=== PATIENT | female | born 1955 | race Caucasian/White ===

== ENCOUNTER 2022-11-22 15:34 | Emergency (ER) | payer MEDICAID ==
[~2022-11-22] VITALS: Ht 154.9 cm; Wt 66.2 kg
[2022-11-22 15:41] VITALS: BP 126/72
[2022-11-22] MEDS ORDERED: MECLIZINE 25 MG TAB PO ONE (15:45)
[2022-11-22 16:28] LABS: BASOPHILS # (AUTO) 0.1 K/uL (0.00-0.22); BASOPHILS % (AUTO) 0.8 % (0.0-2.0); EOSINOPHILS # (AUTO) 0.1 K/uL (0-0.4); EOSINOPHILS % (AUTO) 0.8 % (0.0-4.0); HEMATOCRIT 44.1 % (36-48); LYMPHOCYTES # (AUTO) 1.8 K/uL (2.5-16.5); LYMPHOCYTES % (AUTO) 22.8 % (20.5-51.1); MEAN CORPUSCULAR HEMOGLOBIN 34 pg (27-31); MEAN CORPUSCULAR HGB CONC 34 g/dL (33-37); MEAN CORPUSCULAR VOLUME 98.9 fL (80-94); MONOCYTES # (AUTO) 0.7 K/uL (0.8-1.0); MONOCYTES % (AUTO) 8.5 % (1.7-9.3); NEUTROPHILS # (AUTO) 5.4 K/uL (1.8-7.7); NEUTROPHILS % (AUTO) 67.1 % (42.2-75.2); PLATELET COUNT (AUTO) 234 K/uL (140-450); RED BLOOD CELL COUNT(AUTO) 4.45 MIL/uL (4.20-5.40); RED CELL DISTRIBUTION WIDTH 13.3 % (11.6-13.7)
[2022-11-22] MEDS ORDERED: MECLIZINE 25 MG TAB ONE (16:49)
[2022-11-22 17:03] LABS: ALBUMIN 3.4 g/dL (3.4-5.0); ANION GAP 10.9 (8-16); ASPARTATE AMINOTRANSFERASE 15 U/L (15-37); CARBON DIOXIDE 29.6 mmol/L (21-32); CHLORIDE 97 mmol/L (98-107); CREATININE 0.8 mg/dL (0.6-1.3); GFR ARICAN-AMERICAN 92 mL/min (>90); GLUCOSE 119 mg/dL (74-106); POTASSIUM 3.5 mmol/L (3.5-5.1); SODIUM SERUM 134 mmol/L (136-145); TOTAL BILIRUBIN 0.4 mg/dL (0.0-1.0); UREA NITROGEN, BLOOD 11 mg/dL (7-18)
[2022-11-22 17:12] LABS: BILIRUBIN,URINE NEGATIVE (NEGATIVE); BLOOD, URINE TRACE-I (NEGATIVE); COLOR,URINE YELLOW (YELLOW); LEUKOCYTE ESTERASE ,URINE 2+ (NEGATIVE); NITRITE, URINE NEGATIVE (NEGATIVE); UGLUCOSE NEGATIVE (NEGATIVE)
[2022-11-22 17:14] LABS: APPEARANCE,URINE HAZY (CLEAR)
[2022-11-22 17:28] LABS: WBC,URINE 0-5 /HPF (0-5)
[2022-11-22] MEDS ORDERED: ONDA-188 PO (17:34)
[2022-11-22] MEDS ORDERED: MECL-303 PO (17:34)
--- NOTE | 2022-11-22 17:50 | NUR ---
67F presents to ED with c/o dizziness since this morning. Pt reports sudden onset of dizziness while sitting at home, worsening with movement, states dizziness subsides when not moving/ambulating. Pt denies fevers, chills, UTI symptoms, pain, denies taking meds for dizziness. Hx of hypertension, compliant with meds.
[2022-11-22 18:00] VITALS: BP 126/79
--- NOTE | 2022-11-22 18:00 | NUR ---
Patient discharged with v/s stable. Written and verbal after care instructions given and explained. Patient alert, oriented and verbalized understanding of instructions. Ambulatory with steady gait. All questions addressed prior to discharge. ID band removed. Patient advised to follow up with PMD. Rx of Meclizine, Zofran given. Patient educated on indication of medication including possible reaction and side effects. Opportunity to ask questions provided and answered.
== END 2022-11-22 18:00 | disposition home or self-care (01) ==
LOC: MED 15:34
DX: R42 Dizziness and giddiness (principal); I10 Essential (primary) hypertension; Z79.899 Other long term (current) drug therapy
CPT/HCPCS: 36415; 70450; 80053; 81001; 84484; 85025; 87086; 93005; 99285; J8597

== ENCOUNTER 2023-01-10 15:41 | Emergency (ER) | payer MEDICAID ==
[~2023-01-10] VITALS: Ht 162.6 cm; Wt 68.0 kg
[~2023-01-10 15:41] MED LIST: MECL-303 PO; ONDA-188 PO
[2023-01-10 15:53] VITALS: BP 150/99
[2023-01-10] MEDS ORDERED: FAMOTIDINE 20 MG TAB PO ONE (16:50)
[2023-01-10] MEDS ORDERED: ALUMINUM HYD/MAG/SIMETHICONE 30 ML UDC PO ONE (16:50)
[2023-01-10] MEDS ORDERED: diazePAM 5 MG TAB PO ONE (16:50)
--- NOTE | 2023-01-10 17:00 | NUR ---
bibs for dizziness, epigastric pain, nausea today. no active vomit. denies fever, chills, sob. aao x4. resp even and nonalbored. vss. ambualtory
--- NOTE | 2023-01-10 17:16 | NUR ---
medicated per md order. cxr done
[2023-01-10 17:27] LABS: BASOPHILS # (AUTO) 0.1 K/uL (0.00-0.22); BASOPHILS % (AUTO) 0.9 % (0.0-2.0); EOSINOPHILS # (AUTO) 0.1 K/uL (0-0.4); EOSINOPHILS % (AUTO) 1.2 % (0.0-4.0); HEMATOCRIT 41.9 % (36-48); HEMOGLOBIN 14.5 g/dL (12.0-16.0); LYMPHOCYTES # (AUTO) 1.8 K/uL (2.5-16.5); LYMPHOCYTES % (AUTO) 30.9 % (20.5-51.1); MEAN CORPUSCULAR HEMOGLOBIN 34 pg (27-31); MEAN CORPUSCULAR HGB CONC 35 g/dL (33-37); MEAN CORPUSCULAR VOLUME 97.5 fL (80-94); MONOCYTES # (AUTO) 0.7 K/uL (0.8-1.0); MONOCYTES % (AUTO) 11.5 % (1.7-9.3); NEUTROPHILS # (AUTO) 3.3 K/uL (1.8-7.7); NEUTROPHILS % (AUTO) 55.5 % (42.2-75.2); PLATELET COUNT (AUTO) 232 K/uL (140-450); RED CELL DISTRIBUTION WIDTH 12.8 % (11.6-13.7); WHITE BLOOD COUNT (AUTO) 5.9 K/uL (4.8-10.8)
[2023-01-10 17:55] LABS: ANION GAP 13.2 (8-16); CARBON DIOXIDE 25.3 mmol/L (21-32); CHLORIDE 98 mmol/L (98-107); CREATININE 0.8 mg/dL (0.6-1.3); GFR ARICAN-AMERICAN 92 mL/min (>90); GLUCOSE 106 mg/dL (74-106); POTASSIUM 3.5 mmol/L (3.5-5.1); SODIUM SERUM 133 mmol/L (136-145); UREA NITROGEN, BLOOD 10 mg/dL (7-18)
[2023-01-10 18:00] LABS: BILIRUBIN,URINE NEGATIVE (NEGATIVE); BLOOD, URINE 1+ (NEGATIVE); COLOR,URINE YELLOW (YELLOW); LEUKOCYTE ESTERASE ,URINE 2+ (NEGATIVE); NITRITE, URINE NEGATIVE (NEGATIVE); UGLUCOSE NEGATIVE (NEGATIVE)
[2023-01-10 18:08] LABS: APPEARANCE,URINE HAZY (CLEAR)
[2023-01-10 18:14] LABS: ASPARTATE AMINOTRANSFERASE 23 U/L (15-37); LIPASE 169 U/L (73-393); TOTAL BILIRUBIN 0.6 mg/dL (0.0-1.0)
--- NOTE | 2023-01-10 18:30 | NUR ---
states feeling better. aao x4. resp even and nonlabored. vss. pending results
[2023-01-10 18:43] LABS: RBC,URINE 0-5 /HPF (0-5)
[2023-01-10 18:44] LABS: WBC,URINE 20-60 /HPF (0-5)
[2023-01-10] MEDS ORDERED: OMEP40EC23 PO (18:57)
[2023-01-10] MEDS ORDERED: CEPH-588 PO (18:57)
[2023-01-10] MEDS ORDERED: SUCR1TAB35 PO (18:57)
--- NOTE | 2023-01-10 19:15 | NUR ---
REPORT GIVEN TO YARA GREEN
[2023-01-10 19:36] VITALS: BP 128/85
== END 2023-01-10 17:00 | disposition home or self-care (01) ==
LOC: MED 15:41
DX: R42 Dizziness and giddiness (principal); N30.00 Acute cystitis without hematuria; R10.13 Epigastric pain; I10 Essential (primary) hypertension; E03.9 Hypothyroidism, unspecified; Z79.899 Other long term (current) drug therapy; Z79.2 Long term (current) use of antibiotics
CPT/HCPCS: 36415; 71045; 80053; 81001; 83690; 84484; 85025; 87086; 93005; 99285; Q0092

== ENCOUNTER 2023-01-13 02:35 | Inpatient (IN) | payer MEDICAID ==
[~2023-01-13] VITALS: Ht 162.6 cm; Wt 68.0 kg
[~2023-01-13 02:35] MED LIST changes: +CEPH-588 PO; +OMEP40EC23 PO; +SUCR1TAB35 PO
[2023-01-13 02:46] VITALS: BP 135/84
[2023-01-13] MEDS ORDERED: ONDANSETRON 4 MG/2 ML VIAL IVP ONE (04:55)
[2023-01-13] MEDS ORDERED: ONDANSETRON 4 MG/2 ML VIAL ONE (04:57)
[2023-01-13] MEDS ORDERED: cefTRIAXone 1,000 MG VIAL ONE (04:58)
--- NOTE | 2023-01-13 05:00 | NUR ---
pt is here beause worsening the abd pain with nausea and vomitting. she is alert and oriented x 4. spainish speaker. Daughter at the bedside. She ia ambulate to the bathroom.
[2023-01-13 05:25] LABS: BASOPHILS # (AUTO) 0.1 K/uL (0.00-0.22); BASOPHILS % (AUTO) 0.8 % (0.0-2.0); EOSINOPHILS % (AUTO) 0.6 % (0.0-4.0); HEMATOCRIT 41.4 % (36-48); HEMOGLOBIN 14.2 g/dL (12.0-16.0); LYMPHOCYTES # (AUTO) 1.6 K/uL (2.5-16.5); LYMPHOCYTES % (AUTO) 22.2 % (20.5-51.1); MEAN CORPUSCULAR HEMOGLOBIN 34 pg (27-31); MEAN CORPUSCULAR HGB CONC 34 g/dL (33-37); MEAN CORPUSCULAR VOLUME 97.3 fL (80-94); MONOCYTES # (AUTO) 0.6 K/uL (0.8-1.0); MONOCYTES % (AUTO) 8.7 % (1.7-9.3); NEUTROPHILS # (AUTO) 4.9 K/uL (1.8-7.7); NEUTROPHILS % (AUTO) 67.7 % (42.2-75.2); PLATELET COUNT (AUTO) 237 K/uL (140-450); RED BLOOD CELL COUNT(AUTO) 4.26 MIL/uL (4.20-5.40); RED CELL DISTRIBUTION WIDTH 12.7 % (11.6-13.7); WHITE BLOOD COUNT (AUTO) 7.2 K/uL (4.8-10.8)
[2023-01-13 05:39] LABS: ALBUMIN 4.2 g/dL (3.4-5.0); ANION GAP 10.9 (8-16); CARBON DIOXIDE 27.5 mmol/L (21-32); CREATININE 0.7 mg/dL (0.6-1.3); POTASSIUM 3.4 mmol/L (3.5-5.1); TOTAL BILIRUBIN 0.8 mg/dL (0.0-1.0)
[2023-01-13] MEDS ORDERED: SYN.05 PO (05:54)
[2023-01-13 06:11] LABS: APPEARANCE,URINE CLEAR (CLEAR); BILIRUBIN,URINE NEGATIVE (NEGATIVE); BLOOD, URINE TRACE-I (NEGATIVE); COLOR,URINE YELLOW (YELLOW); LEUKOCYTE ESTERASE ,URINE 1+ (NEGATIVE); NITRITE, URINE NEGATIVE (NEGATIVE); PH,URINE 6.5 (5.0-9.0); UGLUCOSE NEGATIVE (NEGATIVE)
[2023-01-13 06:14] LABS: RBC,URINE 0-5 /HPF (0-5)
[2023-01-13] MEDS ORDERED: MORPHINE SULFATE 2 MG/ML SYR IVP PRN (07:35)
[2023-01-13] MEDS ORDERED: guaiFENesin DM 200/20 MG-10 ML 10 ML UDC PO PRN (07:35)
[2023-01-13] MEDS ORDERED: HYDROcodone/APAP 7.5/325 MG 1 TAB PO PRN (07:35)
[2023-01-13] MEDS ORDERED: POTASSIUM CHLORIDE 10 MEQ TABER PO PRN (07:35)
[2023-01-13] MEDS ORDERED: ACETAMINOPHEN 325 MG TAB PO PRN (07:35)
[2023-01-13] MEDS ORDERED: oxyCODONE/APAP 5/325 MG 1 TAB TAB PO PRN (07:35)
[2023-01-13] MEDS ORDERED: DOCUSATE SODIUM 100 MG GELCAP PO PRN (07:35)
[2023-01-13] MEDS ORDERED: ZOLPIDEM 5 MG TAB PO PRN (07:35)
[2023-01-13 09:09] LABS: PROTHROMBIN TIME 10.9 secs (10.8-13.4)
[2023-01-13] MEDS: PANTOPRAZOLE 40 MG TABEC PO SCH (09:18)
[2023-01-13] MEDS: NACL 0.9% 1,000 ML IV SCH (09:22)
[2023-01-13 10:15] LABS: AMYLASE 47 U/L (25-115); CHOL/HDL RATIO 3.3 (1-4.5); FREE T4 (FREE THYROXINE) 1.16 ng/dL (0.76-1.46); HDL CHOLESTEROL 53 mg/dL (40-60); LDL (CALC) 114 mg/dL (60-100); LIPASE 177 U/L (73-393); MAGNESIUM 1.7 mg/dL (1.8-2.4); PHOSPHORUS 3.5 mg/dL (2.5-4.9); TRIGLYCERIDES 51 mg/dL (30-150)
--- NOTE | 2023-01-13 12:07 | NUR ---
pt provided w/ lunch. pt awake and eating in bed
--- NOTE | 2023-01-13 18:04 | NUR ---
pt provided w/ dinner . pt awake and eating in bed
--- NOTE | 2023-01-13 19:21 | NUR ---
REPORT GIVEN TO TRINA COFFMAN. TRANSFER OF CARE AT THIS TIME
--- NOTE | 2023-01-13 19:30 | NUR ---
RECIEVED REPORT FROM ELIE COFFMAN. PT IS AWAKE A&OX4. COMPLIANTS OF MID GASTRIC SHARP ABD PAIN 09/02. PT IS A TELE HOLD. PENDING BED ASSIG. RESP EVEN AND UNLABORED. PT ON BEDSIDE MONITOR. HOB ELEVATED. PT IS TANZANIAN SPEAKING ONLY. BED AT LOWEST POSITION SIDE RAILS X1
[2023-01-13] MEDS: ONDANSETRON 4 MG/2 ML VIAL IM/IVP PRN (19:37)
--- NOTE | 2023-01-13 20:00 | NUR ---
CONTINUING CARE. PT IS ROOM AIR AND AMBULATORY. NO SIGN OF DISTRESS NOTED,
--- NOTE | 2023-01-13 22:14 | NUR ---
PT MOVED TO BED #2
--- NOTE | 2023-01-14 01:10 | NUR ---
PT AMBULATING TO BATHROOM WITH STEADY GAIT. PT DENIES PAIN. RESP EVEN AND UNLABORED. PENDING BEDROOM ASSIG.
[2023-01-14] MEDS: NACL 0.9% 1,000 ML IV SCH (02:14)
[2023-01-14] MEDS: ONDANSETRON 4 MG/2 ML VIAL IM/IVP PRN (02:20)
--- NOTE | 2023-01-14 02:20 | NUR ---
COVERING PRIMARY RN FOR LUNCH RELIEF. EPISODE OF EMESIS. PT MEDICATED WITH PRN ZOFRAN
[2023-01-14 06:06] LABS: BASOPHILS % (AUTO) 0.9 % (0.0-2.0); EOSINOPHILS % (AUTO) 0.5 % (0.0-4.0); HEMATOCRIT 39.9 % (36-48); HEMOGLOBIN 13.8 g/dL (12.0-16.0); LYMPHOCYTES # (AUTO) 1.3 K/uL (2.5-16.5); LYMPHOCYTES % (AUTO) 24.2 % (20.5-51.1); MEAN CORPUSCULAR HEMOGLOBIN 34 pg (27-31); MEAN CORPUSCULAR HGB CONC 35 g/dL (33-37); MEAN CORPUSCULAR VOLUME 98.3 fL (80-94); MONOCYTES # (AUTO) 0.7 K/uL (0.8-1.0); MONOCYTES % (AUTO) 11.9 % (1.7-9.3); NEUTROPHILS # (AUTO) 3.4 K/uL (1.8-7.7); NEUTROPHILS % (AUTO) 62.5 % (42.2-75.2); PLATELET COUNT (AUTO) 224 K/uL (140-450); RED BLOOD CELL COUNT(AUTO) 4.06 MIL/uL (4.20-5.40); RED CELL DISTRIBUTION WIDTH 12.4 % (11.6-13.7); WHITE BLOOD COUNT (AUTO) 5.5 K/uL (4.8-10.8)
[2023-01-14 06:12] LABS: ANION GAP 14.1 (8-16); CARBON DIOXIDE 25.5 mmol/L (21-32); CREATININE 0.9 mg/dL (0.6-1.3); POTASSIUM 3.6 mmol/L (3.5-5.1)
[2023-01-14 07:08] LABS: T4 (THYROXINE) 8.5 ug/dL (4.5-12.0)
[2023-01-14 08:00] VITALS: BP 119/75
--- NOTE | 2023-01-14 08:37 | NUR ---
Patient with chief complaint of back pain on admission and a diagnosis of kidney infection under the care of Doctor Kobi.
--- NOTE | 2023-01-14 09:39 | NUR ---
PATIENT HAS BEEN SCREENED AND CATEGORIZED LOW NUTRITION RISK. PATIENT WILL BE SEEN WITHIN 7 DAYS OF ADMISSION. 01/20/[address]
[2023-01-14] MEDS ORDERED: LEVOTHYROXINE 0.025 MG TAB PO SCH (10:46)
[2023-01-14] MEDS: PANTOPRAZOLE 40 MG TABEC PO SCH (10:55)
--- NOTE | 2023-01-14 11:37 | NUR ---
Patient sent to CT for abdomen and pelvis without contrast.
[2023-01-14] MEDS ORDERED: CIPR500T4 PO (12:44)
[2023-01-14] MEDS ORDERED: MIRABULK PO (12:44)
== END 2023-01-14 14:25 | disposition home or self-care (01) | DRG 463 ==
LOC: MED 02:35 → MMU 06:57 → MTU 01-14 05:21
PROVIDERS: ADMIT Student in an Organized Health Care Education/Training Program; ATTEND Student in an Organized Health Care Education/Training Program
DX: N12 Tubulo-interstitial nephritis, not specified as acute or chronic (principal); E87.1 Hypo-osmolality and hyponatremia; K57.90 Diverticulosis of intestine, part unspecified, without perforation or abscess without bleeding; E87.6 Hypokalemia; R73.9 Hyperglycemia, unspecified; E83.42 Hypomagnesemia; I10 Essential (primary) hypertension; E03.9 Hypothyroidism, unspecified; K59.00 Constipation, unspecified; Z20.822 Contact with and (suspected) exposure to COVID-19
CPT/HCPCS: 36415; 76700; 80048; 80053; 81001; 82150; 83036; 83605; 83690; 83735; 83880; 84100; 84436; 84439; 84443; 84479; 84484; 85025; 85610; 85730; 87040; 87086; 93005; 97116; 99285; J0696; J2270; J2405; J7060; Q0092